=== PATIENT | female | born 1995 | race Two or more races ===

== ENCOUNTER 2021-09-17 17:53 | Emergency (ER) | payer OTHER ==
[2021-09-17 18:03] VITALS: BP 139/74; PULSE 107; TEMP 98; BMI 30.9
== END 2021-09-17 19:54 | disposition home or self-care (01) ==
LOC: JER 17:53
DX: M79.604 Pain in right leg (principal); R22.41 Localized swelling, mass and lump, right lower limb
CPT/HCPCS: 93971-TC; 99284-25

== ENCOUNTER 2022-12-25 06:34 | Emergency (ER) | payer OTHER ==
[2022-12-25 06:50] VITALS: RESP 18; TEMP 97.9; BMI 31.5
[2022-12-25] MEDS ORDERED: LIDOCAINE 5% TOPICAL PATCH TP ONE (07:54)
[2022-12-25] MEDS ORDERED: KETOROLAC TROMETHAMINE 15 MG/ML VIAL IVPUSH ONE (07:55)
[2022-12-25] MEDS ORDERED: KETOROLAC TROMETHAMINE 15 MG/ML VIAL ONE (08:00)
[2022-12-25] MEDS ORDERED: LIDOCAINE 5% TOPICAL PATCH ONE (08:00)
[2022-12-25 08:28] LABS: BASO % 0.5 % (0-2.0); EOS % 1.9 % (0-4.5); HEMATOCRIT 36.9 % (32.4-45.2); HEMOGLOBIN 12.5 GM/dL (10.7-15.3); LYMPH % 37.3 % (8-40); MCH 27.9 pg (25.7-33.7); MCHC 33.9 g/dl (32.0-36.0); MEAN CELL VOLUME 82.4 fl (80-96); MEAN PLT VOLUME 7.4 fl (7.5-11.1); MONO % 6.3 % (3.8-10.2); PLATELET COUNT 316 10^3/uL (134-434); RBC 4.49 M/mm3 (3.60-5.2); RDW 12.8 % (11.6-15.6); WHITE BLOOD COUNT 7.9 K/mm3 (4.0-10.0)
[2022-12-25 08:43] LABS: POTASSIUM 4.4 mmol/L (3.5-5.1)
[2022-12-25 08:44] LABS: ALBUMIN 4.2 g/dl (3.4-5.0); BLOOD UREA NITROGEN 12.2 mg/dL (7-18)
[2022-12-25 08:48] LABS: CREATININE 0.7 mg/dL (0.55-1.3)
[2022-12-25 08:50] LABS: BILIRUBIN,TOTAL 0.2 mg/dL (0.2-1); TOT PROT 8.1 g/dl (6.4-8.2)
[2022-12-25 09:37] VITALS: BP 118/70; PULSE 65
[2022-12-25] MEDS ORDERED: LIDOCAINE PATCH REMOVAL MC ONE (20:00)
== END 2022-12-25 09:38 | disposition home or self-care (01) ==
LOC: JER 06:34
PROC: 3E033NZ Introduction of Analgesics, Hypnotics, Sedatives into Peripheral Vein, Percutaneous Approach (ICD-10-PCS; principal; 2022-12-25)
DX: R07.89 Other chest pain (principal)
CPT/HCPCS: 36415; 71046-TC-FY; 80053; 84484; 84703; 85025; 93005; 93010; 99285-25

== ENCOUNTER 2024-08-25 12:05 | Emergency (ER) | payer BC, OTHER ==
[2024-08-25 12:19] VITALS: BP 137/75; PULSE 77; RESP 18; TEMP 98.6; BMI 30.9
[2024-08-25] MEDS ORDERED: KETOROLAC TROMETHAMINE 30 MG/1 ML VIAL ONE (14:32)
[2024-08-25] MEDS ORDERED: ACETAMINOPHEN 500 MG TABLET (FP) ONE (14:33)
[2024-08-25] MEDS: KETOROLAC TROMETHAMINE 30 MG/1 ML VIAL IM ONE (14:39)
[2024-08-25] MEDS: ACETAMINOPHEN 500 MG TABLET (FP) PO ONE (14:39)
== END 2024-08-25 15:31 | disposition home or self-care (01) ==
LOC: JER 12:05
PROC: 3E0233Z Introduction of Anti-inflammatory into Muscle, Percutaneous Approach (ICD-10-PCS; principal; 2024-08-25)
DX: M79.661 Pain in right lower leg (principal); M79.89 Other specified soft tissue disorders
CPT/HCPCS: 73610-TC-RT-FY; 93971-TC; 99284-25